=== PATIENT | female | born 1990 | race Caucasian/White ===

== ENCOUNTER 2017-05-27 10:14 | Outpatient (CLI) | payer BC ==
[~2017-05-27] VITALS: Ht 175.3 cm; Wt 123.8 kg
[2017-05-27 10:59] LABS: BASO % 0.1 %; BASO ABS # 0.01 K/uL (0-0.2); EOS % 0.1 %; EOS ABS # 0.02 K/uL (0-0.5); HEMATOCRIT 36.5 % (37-47); HEMOGLOBIN 12.3 g/dL (12.0-16.0); IG# 0.04 K/uL (0.00-0.02); LYMPH % 12.2 %; LYMPH ABS # 1.67 K/uL (1.2-3.4); MEAN CELL VOLUME 85.3 fL (80-100); MEAN CORPUSCULAR HEMOGLOBIN 28.7 pg (25-34); MEAN PLATELET VOLUME 9.8 fL (7.4-10.4); MONO % 4.5 %; MONO ABS # 0.62 K/uL (0.11-0.59); NEUT % 82.8 %; NEUT ABS # 11.29 K/uL (1.4-6.5); PLATELET COUNT 239 K/uL (130-400); RED CELL DISTRIBUTION WIDTH CV 13.1 % (11.5-14.5); RED CELL DISTRIBUTION WIDTH SD 40.3 fL (36.4-46.3); WHITE BLOOD COUNT 13.65 K/uL (4.8-10.8)
[2017-05-27] MEDS ORDERED: PRENTAB26 PO (11:09)
[2017-05-27 11:18] LABS: MEAN CORPUSCULAR HGB CONC 33.7 g/dl (32-36)
[2017-05-27 11:21] LABS: ALT/SGPT 18 U/L (12-78); AST/SGOT 11 U/L (15-37); CREATININE 0.55 mg/dl (0.60-1.20); URIC ACID 4.4 mg/dl (2.6-7.2)
[2017-05-27 11:25] VITALS: Ht 175.3 cm; Wt 123.8 kg
== END 2017-05-27 12:00 | disposition home or self-care (01) ==
LOC: C.LD 10:14 → C.OPB 10:14
PROVIDERS: ATTEND Obstetrics & Gynecology
DX: O99.89 Other specified diseases and conditions complicating pregnancy, childbirth and the puerperium (principal); R03.0 Elevated blood-pressure reading, without diagnosis of hypertension; Z3A.00 Weeks of gestation of pregnancy not specified

== ENCOUNTER → 2017-05-27 | Outpatient (CLI) | payer BC ==
[~2017-05-27] MED LIST: PRENTAB26 PO
== END | disposition home or self-care (01) ==
LOC: C.LABSPEC 10:57
PROVIDERS: ATTEND Obstetrics & Gynecology
DX: Z34.03 Encounter for supervision of normal first pregnancy, third trimester (principal)

== ENCOUNTER 2017-06-01 14:50 | Inpatient (IN) | payer BC ==
[~2017-06-01] VITALS: Ht 175.3 cm; Wt 123.8 kg
[2017-06-01] MEDS ORDERED: LACTATED RINGER'S 1000ML 1,000 ML IV PRN (15:21)
[2017-06-01 15:57] VITALS: Ht 175.3 cm; Wt 123.8 kg
[2017-06-01 16:01] LABS: HEMATOCRIT 36.4 % (37-47); HEMOGLOBIN 12.4 g/dL (12.0-16.0); MEAN CELL VOLUME 85.6 fL (80-100); MEAN CORPUSCULAR HEMOGLOBIN 29.2 pg (25-34); MEAN CORPUSCULAR HGB CONC 34.1 g/dl (32-36); MEAN PLATELET VOLUME 10.1 fL (7.4-10.4); PLATELET COUNT 281 K/uL (130-400); RED CELL DISTRIBUTION WIDTH CV 13.5 % (11.5-14.5); RED CELL DISTRIBUTION WIDTH SD 41.8 fL (36.4-46.3); WHITE BLOOD COUNT 15.79 K/uL (4.8-10.8)
--- NOTE | 2017-06-01 16:44 | Medical Student: [facility] ---
Med Student History & Physical Date of Service Jun 01, 2017. Chief Complaint Extended monitoring for recent history of elevated blood pressure History of Present Illness Source: patient, spouse, clinic records Terri Johnson is a 26 yo white female who is at 37 weeks and 0/7 days, with ENZO of 06/22/2016as dated by her LMP (09/15/2016), who presents today for prolonged monitoring of elevated blood pressures in clinic today and for the last week. She states she recently transitioned care to [facility] when moving to the area 2 weeks ago. At her 36 week OB visit her BP was 160/90. Today she was seen in the clinic with BP of 156/98 and symptoms of headache (relief with tylenol) and nausea with two episodes of vomiting. She states she felt like she was car-sick after taking back roads to the clinic. She denies current symptoms of nausea, vomiting, history of elevated blood pressure prior to a week ago (ran 120/80 at prior OB visits), swelling in hands/feet, blurry/double vision, RUQ abdominal pain, and puffy face. She notes movement, and her blood type is A+, antibody negative. She denies any significant contractions, leakage of fluid, vaginal bleeding, AMA, PET, and anomalies. She reports influenza vaccine (02/09/2017), TDAP vaccine (03/29/2017), and rubella immune. She is GBS negative and had negative STI screening (VDRL/RPR immune, nonreactive treponemal, negative for HBsAg/HIV/chlamydia/gonorrhea). She declined genetic screening. Her 24-28 week labs (03/24) showed 33.2% HCT, 11.4 g/dl HGB, MCV of 86, platelets if 277k, and glucose of 98. Her 32-38 week labs (05/27) showed HCT of 36.5%, 12.3g/dl HGB. OB History She denies prior pregnancies. 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 She notes she was on OCPs for history of severe cramping. Age of 1st sexual intercourse was at age 18. She has had 1 male lifetime partner. 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 She notes history of fibroadenoma of right breast with FNA. She denies history of abnormal pap smear , pain with intercourse, feeling unsafe at home, history of STIs, family history of gynecological cancers, or personal history of gynecological surgery. 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) Allergies Coded Allergies: No Known Allergies (Unverified , 06/01/17) Home Medications Multivit/Min/Iron/Fol Ac/Pren ( Vitamin), 1 TAB PO DAILY Review of Systems Constitutional: No fever, No chills Eyes: No worsening of vision, No diplopia ENT: No sore throat Respiratory: No cough, No shortness of breath Cardiovascular: No chest pain, No edema, No palpitations Abdomen: No pain, No nausea, No vomiting, No diarrhea Musculoskeletal: No swelling, No calf pain Genitourinary - Female: No dysuria, No hematuria, No rash Neurologic: No memory loss, No numbness/tingling Psychiatric: No depression symptoms, No anxiety Hematologic / Lymphatic: No swollen lymph nodes Integumentary: No rash Physical Exam General Appearance: WD/WN, no apparent distress Head: normocephalic, atraumatic Eyes: normal inspection, sclerae normal ENT: normal ENT inspection Neck: supple Respiratory/Chest: lungs clear, normal breath sounds Cardiovascular: regular rate, rhythm, no edema, no murmur Abdomen / GI: + pertinent finding (gravid, fundal height: term, vertex, no palpable contractions, +FHTs, EFW 8lbs) Genitourinary - Female: + pertinent finding (dilation: 1cm, 25% effacement, -2 station) Back: normal inspection Extremities: normal inspection, no calf tenderness, no pedal edema Neurologic/Psych: alert, normal mood/affect, normal reflexes (1/4 bilaterally) Skin: no rash Lymphatic: no adenopathy Monitoring External Monitor: Category 1: baseline HR in 130s, reactive, moderately variable with accelerations. No late/early/variable decelerations. Tocodynamometer: Mild irregular contractions every 8-11 minutes Laboratory Results 06/01/17 15:35 Test 1/16/18 15:35 Red Blood Count 4.25 M/uL (4.2-5.4) Mean Corpuscular Volume 85.6 fL (80-100) Mean Corpuscular Hemoglobin 29.2 pg (25-34) Mean Corpuscular Hemoglobin Concent 34.1 g/dl (32-36) RDW Standard Deviation 41.8 fL (36.4-46.3) RDW Coefficient of Variation 13.5 % (11.5-14.5) Mean Platelet Volume 10.1 fL (7.4-10.4) Diagnostic Results Vitals: BP: 134/73 P: 95 Assessment and Plan Terri Johnson is a 26 yo white female at 37 weeks and 0/7 days, who presents with elevated blood pressure. Her headache has resolved with Tylenol and her nausea/vomiting has resolved, and from her history likely a result of car sickness. She denies symptoms of pre-eclampsia (including but not limited to: blurry vision, swelling, puffy face, RUQ pain). She was a previously scheduled induction for tomorrow, but she will be kept overnight for BP monitoring and plans of induction with vaginal delivery. Plan: 1) Monitor for signs/symptoms of pre-eclampsia - Check BP every 15 minutes - Monitor reflexes (1/4 at baseline) - Labs: liver enzymes, CBC (for platelets and hemoglobin), Creatinine 2) Admit for anticipated induction followed by vaginal - Place heard bulb through cervix to help ripen cervix - Monitor FHTs and contractions - May need to add pitocin to help with contractions or artificial rupture of membranes to aid in laboring process.
[2017-06-02] MEDS ORDERED: LACTATED RINGER'S 1000ML 500 ML IV PRN ×2 (02:33→13:31)
[2017-06-02] MEDS ORDERED: OXYTOCIN 30 UNITS/500ML NSS IV PRN ×2 (02:45→20:30)
[2017-06-02] MEDS ORDERED: BUTORPHANOL TARTRATE 1 MG/ML VIAL IV ONE (02:45)
[2017-06-02] MEDS: LACTATED RINGER'S 1000ML 1,000 ML IV SCH ×3 (02:48→13:56)
[2017-06-02] MEDS ORDERED: ACETAMINOPHEN 500 MG TAB PO STA (08:07)
[2017-06-02] MEDS ORDERED: ACETAMINOPHEN 500 MG TAB PO PRN (08:15)
[2017-06-02] MEDS ORDERED: BUPIVACAINE 0.25% 30 ML VIAL ONE (13:19)
[2017-06-02] MEDS ORDERED: FENTANYL CITRATE INJ 50 MCG/1 ML 2 ML VIAL ONE (13:20)
[2017-06-02] MEDS ORDERED: EpHEDrine SULFATE INJ 50 MG/ML AMP ONE (13:20)
[2017-06-02] MEDS ORDERED: FENTANYL 2MCG/ML ROPIV 1.25MG/ML 100ML BAG EPI ONE (13:21)
[2017-06-02] MEDS ORDERED: NALOXONE HCL INJ 1 MG in SODIUM CHLORIDE 0.9% 1000ML 1,000 ML IV PRN (13:31)
--- NOTE | 2017-06-02 13:41 | Medical Student: [facility] ---
Med Student Progress Note Date of Service Jun 02, 2017. Subjective Pt evaluation today including: conversation w/ patient, physical exam Terri is complaining of significant with each contraction and requests an epidural. Objective Physical Exam Comments: Cervix: 4cm dilation, 75% effaced, -2 station FHTs: category 1: baseline HR in 140s with moderate variability and accelerations. No early/late/variable decelerations. Kiana: contractions every 1.5-3 minutes, but only picked up on monitor when mother is on side Laboratory Results Last 24 Hours Test 06/01/17 15:35 White Blood Count 15.79 K/uL Red Blood Count 4.25 M/uL Hemoglobin 12.4 g/dL Hematocrit 36.4 % Mean Corpuscular Volume 85.6 fL Mean Corpuscular Hemoglobin 29.2 pg Mean Corpuscular Hemoglobin Concent 34.1 g/dl RDW Standard Deviation 41.8 fL RDW Coefficient of Variation 13.5 % Platelet Count 281 K/uL Mean Platelet Volume 10.1 fL Assessment and Plan Assessment and Plan: Terri Johnson is a 26 yo white female at 37 weeks and 0/7 days, who presents with elevated blood pressure. Her blood pressure and other vitals have been stable and WNL. She is experiencing significant pain with each contraction and will have an epidural placed via anesthesia. Anticipate vaginal delivery.
[2017-06-02] MEDS ORDERED: ONDANSETRON INJ 2 MG/ML 2 ML VIAL IV PRN (13:45)
[2017-06-02] MEDS ORDERED: NALBUPHINE HCL INJ 10 MG/ML AMP IV PRN (13:45)
[2017-06-02] MEDS ORDERED: EpHEDrine SULFATE INJ 50 MG/ML AMP IV PRN (13:45)
[2017-06-02] MEDS ORDERED: NALOXONE HCL INJ 0.4 MG/1 ML VIAL/CARP IV PRN (13:45)
[2017-06-02] MEDS ORDERED: DiphenhydrAMINE HCL 50 MG/ML VIAL IV PRN (13:45)
[2017-06-02] MEDS: FENTANYL 2MCG/ML ROPIV 1.25MG/ML 100ML BAG EPI PRN ×2 (15:07→17:17)
[2017-06-02] MEDS ORDERED: NURSING VERBAL MED ORDER ONE (17:15)
[2017-06-02] MEDS ORDERED: DIPHTHERIA/TETANUS/PERTUSSIS 0.5 ML SYR/VIAL IM. ONE (20:30)
[2017-06-02] MEDS ORDERED: HYDROCORTISONE ACETATE 25 MG SUPP PR PRN (20:30)
[2017-06-02] MEDS ORDERED: LANOLIN OINT EXT PRN (20:30)
[2017-06-02] MEDS ORDERED: IBUPROFEN 600 MG TAB PO PRN (20:30)
[2017-06-02] MEDS ORDERED: ACETAMINOPHEN 325 MG TAB PO PRN (20:30)
[2017-06-02] MEDS ORDERED: OXYCODONE/ACETAMINOPHEN 5-325 TAB PO PRN (20:30)
[2017-06-02] MEDS ORDERED: SUPERCREAM 0.870 % 15GM JAR EXT PRN (20:30)
[2017-06-02] MEDS ORDERED: BENZOCAINE 20% AER SPR 82.5 GM CAN EXT PRN (20:30)
[2017-06-02] MEDS ORDERED: LACTATED RINGER'S 1000ML 1,000 ML IV SCH (21:30)
--- NOTE | 2017-06-02 21:57 | Anesthesia Procedure Note ---
Anesthesia Epidural Removal Nt Date & Time Jun 02, 2017 at 21:57 Vital Signs Pain Intensity: 0.0 Notes Mental Status: alert / awake / arousable, participated in evaluation Nausea / Vomiting: adequately controlled Pain: adequately controlled Airway Patency, RR, SpO2: stable & adequate BP & HR: stable & adequate Hydration State: stable & adequate Neuraxial Anesthesia: was administered Anesthetic Complications: no major complications apparent, pt satisfied with anesthetic care Epidural: removed without complications, with tip intact
[2017-06-03 00:20] VITALS: BP 124/85; PULSE 70; TEMP 37.2
[2017-06-03 04:00] VITALS: BP 138/89; PULSE 90; TEMP 36.6
--- NOTE | 2017-06-03 07:40 | OB/GYN Progress Note ---
[employer] Progress Note Date of Service Jun 03, 2017. Subjective conversation w/ patient, physical exam, chart review, lab review Ambulation: ambulating normally Voiding: no voiding problems Passing Gas: Yes Diet Tolerance: Regular Diet Lochia: Small Feeding Type: Breast Feeding Review of Systems Constitutional: No fever Respiratory: No cough, No shortness of breath Cardiac: No chest pain Abdomen: No pain, No nausea, No vomiting Female : No dysuria no GUIDO, no RUQ pain, no visual changes Objective Vital Signs Date Time Temp Pulse Resp B/P (MAP) Pulse Ox O2 Delivery O2 Flow Rate FiO2 06/03/17 04:00 36.6 90 18 138/89 (105) Room Air 06/03/17 00:20 Room Air 06/03/17 00:20 37.2 70 18 124/85 (98) Room Air Physical Exam General Appearance: WELL-APPEARING, WD/WN, NO APPARENT DISTRESS Respiratory/Chest: lungs clear, normal breath sounds Cardiovascular: regular rate, rhythm, no murmur Abdomen: non tender, soft Fundus: Firm Extremities: no pedal edema, no calf tenderness Laboratory Results Last 24 Hours Test 06/03/17 04:44 Assessment and Plan Post- Day Number: 1 Continue Routine Care: 26 f PPD 1, planned induction due to gestation HTN at 37 wks. Patient care was transferred recently to [facility]. Patient was found in the office to have pressure 160/90 +2 protein. Following delivery her pressures have normalized; 138/89 this am. Plan; 1. Continue pp care; ambulate, monitor lochia, support BF, control pain 2. Plan is to DC tonight, follow serial BP until DC. Instructions discussed with the patient. Resident Physician Supervision Note: I was present with Dr. Rosario during the history and exam. I discussed the case with the resident and agree with the findings and plan as documented in the note. Any exceptions or clarifications are listed here: [None] Documented By: Sarah Tyler
--- NOTE | 2017-06-03 07:42 | Discharge Instructions ---
Discharge Instructions Date of Service Jun 03, 2017. Admission Reason for Admission: Induction Discharge Discharge Diagnosis / Problem: vaginal delivery Discharge Goals Goal(s): Routine recovery after delivery Medications Continue Dispensed Medications: supercream, dermaplast, tucks, lansinoh Activity Recommendations Activity Limitations: per Instructions/Follow-up section . Instructions / Follow-Up Instructions / Follow-Up ACTIVITY RECOMMENDATIONS: * Gradual return to full activity over the next 2-3 weeks. * No lifting - nothing heavier than baby over the next 2-3 weeks. * Do not engage in vigorous exercise, sexual activity or sports until cleared by your physician. * Do not drive or operate any motorized equipment until cleared by your physician. * You may shower/bathe daily. MEDICATIONS: For discomfort or pain, you may use Acetaminophen (Tylenol), Ibuprofen (Advil), or Naproxen (Aleve) following the package directions. For constipation you may use Colace following the package directions. BREAST CARE: If you are not breast feeding: * Wear a supportive bra 24 hours a day for one to two weeks. * Avoid stimulating your breasts and nipples as much as possible during the first few weeks after delivery. * When taking a shower, have the warm water hit your back, not breasts. * When your breasts feel full, apply ice packs. Usually three to four times a day helps ease the discomfort. * Take a mild pain medication (Tylenol / Motrin) when you are uncomfortable. If breast feeding: * Use breast milk to lubricate nipples. Lansinoh cream may be used for sore nipples. You do not need to remove cream prior to breast feeding. If using a different brand of cream, check the label for directions regarding removal of cream prior to nursing. * Wear a supportive bra. * If having problems with breasts or breast feeding, call a corporate health consultant or your health care provider. EPISIOTOMY CARE: After delivery, if you have an episiotomy (stitches), the following steps will ease discomfort and aid healing. * For the first 24 hours after delivery, place ice packs next to your episiotomy to help reduce swelling. * After the first 24 hour-period, sitz baths, either portable or in the tub, are suggested. A shower with a shower arm sprayed over the episiotomy may be comforting. * Daniela care should be done after each voiding and bowel movement. Squirt warm water from a plastic bottle over the perineum (region of the body between the anus and urinary opening) and pat dry. * Use Dermoplast to ease discomfort. Shake container. [place] directly over the episiotomy. Place a Tucks on a clean sanitary pad next to your episiotomy. SPECIAL CARE INSTRUCTIONS: When you are discharged from the hospital, it is important for you to follow the instructions listed below: * During the first week at home, you should be able to care for yourself and your baby. In addition, the usual light household activities are encouraged. * Limit your activities to the way you feel. Do not try to clean the house or move furniture. Be sensible. * If you actively engage in sports and have done so up until the time of your delivery, you may resume these activities as soon as you feel able. This may take up to one month or even longer. Use good judgment. * Continue to take your vitamins for at least six weeks after the of your baby. * Your diet need not be limited unless you were on a special diet before your delivery. Breast-feeding mothers need around 2500 calories per day and at least 64-80 ounces of fluid per day (8 to 10 glasses). * You should eat foods from the four major food groups. Crash diets or fad diets are to be avoided. Eating lean meats, fresh fruits and vegetables, low-fat dairy products, high fiber foods and a regular exercise program, will help you get back to your pre- weight without putting your health at risk. * Constipation is sometimes a problem after delivery. Take a mild laxative as needed. If breast feeding, Milk of Magnesia is acceptable to use. You may use a suppository or Fleets enema if no episiotomy. * A daily shower or tub bath is suggested. Be sure to thoroughly and gently dry the perineum. * A bloody vaginal discharge will usually continue until around four weeks post . A small amount of bleeding may continue for as long as six weeks. Vaginal discharge changes from the bright red bleeding after delivery to pink then brownish and finally yellowish-pink before becoming white and disappearing. * Bleeding may increase with activity. Your first period may come in 4-8 weeks. If you are breast feeding, your period may be delayed even longer. * Acton (sex) can begin whenever both you and your partner feel comfortable and do not have any form of genital infection. It is recommended that you wait at least six weeks for internal and external healing to occur. If you have questions, please talk to your health care practitioner. A condom should be used to prevent infection and . * Foreplay, gentle intercourse and lubrication is very important the first several times to prevent pain. A water-based lubricant such as K-Y jelly or Astroglide may be used. * If you have RH negative blood and your baby is RH positive, you will receive RHOGAM by injection prior to discharge. The nurse will give you a card to keep with you that has the date and place that you received RHOGAM after delivery. * During your care, you had a Rubella screen done to check for the presence of rubella antibodies in your blood. If your test was negative, you will receive a Rubella vaccine prior to discharge. This vaccine may cause a fever, soreness at the injection site and flu-like symptoms. If these symptoms persist, notify your health care practitioner. is not advised for one month after a Rubella vaccine. * Verbalizes understanding of car seat law as reviewed with patient nursing. * Car Seat hand-out given and reviewed with patient by nursing. * Shaken baby information reviewed with patient by nursing. Call you doctor if: * Heavy bleeding (saturating several pads an hour) or passing clots the size of your fist. * A fever >101 degrees F (38.3 degrees C) on two occasions four hours apart and /or chills. * Unusual pain in the pelvic or vaginal areas. * "Baby Blues" lasting longer than two weeks. If you have any questions or concerns, call your health care practitioner at . FOLLOW UP VISIT: * Please call the office at to schedule a 6 week examination. It is important you keep this appointment. It is important for you to make arrangements for either yearly or twice yearly check-ups thereafter. Current Hospital Diet Patient's current hospital diet: Regular Diet Discharge Diet Recommended Diet: Regular OB Diet Pending Studies Studies pending at discharge: no Medical Emergencies . Who to Call and When: Medical Emergencies: If at any time you feel your situation is an emergency, please call [phone] immediately. . Non-Emergent Contact Non-Emergency issues call your: Dural Mechanic . . "Provider Documentation" section prepared by Maurisio Rosario. . VTE Core Measure Inpt VTE Proph given/why not?: Treatment not indicated
[2017-06-03 07:45] VITALS: BP 133/88; PULSE 82; TEMP 37; O2SAT 96
--- NOTE | 2017-06-03 07:55 | DELIVERY SUMMARY ---
DATE OF OPERATION: 06/02/2017 PREOPERATIVE DIAGNOSES: 1. Steinberg intrauterine at 37 and 1. 2. Mild preeclampsia. 3. Induction of labor. POSTOPERATIVE DIAGNOSES: Same. PROCEDURE: Spontaneous vaginal delivery. SURGEON: Sarah Tyler MD. ASSIST: None. ESTIMATED BLOOD LOSS: 300. COMPLICATIONS: None. DISPOSITION: Stable to labor and delivery. DESCRIPTION OF THE PROCEDURE: Terri is a 26-year-old G1, P0, presented for induction of labor at term due to mild preeclampsia. She was given a Ku bulb by my partner Dr. Cox on the evening of . She began Pitocin on the morning of . She received an epidural for pain management, artificial rupture of membranes, and ultimately did reach complete dilation with an urge to push. She pushed through the second stage of labor and went to pass the head down to . I was called for delivery. I prepped in down for delivery. The patient over the next several pushing attempts was able to deliver the head in an occiput anterior position. Nuchal cord x1 was reduced at the perineum. Then, the shoulders and reminder of the infant delivered without any difficulty. The vigorous was placed on the maternal abdomen where the cord was doubly clamped and cut by the father of the baby. The was noted to be fairly small but vigorous and moving all extremities well, making crying sounds as well as demonstrating good tones. The placenta delivered spontaneously and was noted also to be fairly petite but normal with a 3-vessel cord. There was minimal bleeding, and the cervix, vagina and perineum were without lacerations requiring repair. At the current time, mother and baby are both in stable condition having tolerated the delivery well. I attest to the content of the Intraoperative Record and any orders documented therein. Any exception s are noted below.
[2017-06-03] MEDS: PRENATAL VITAMIN TAB PO SCH (08:15)
[2017-06-03] MEDS: DOCUSATE SODIUM 100 MG CAP PO SCH ×2 (08:15→19:54)
[2017-06-03 09:17] LABS: HEMATOCRIT 31.5 % (37-47); HEMOGLOBIN 10.8 g/dL (12.0-16.0)
[2017-06-03 11:20] VITALS: BP 137/95; PULSE 84; TEMP 36.3; O2SAT 97
[2017-06-03 15:30] VITALS: BP 128/83; PULSE 64; TEMP 36.3; O2SAT 95
[2017-06-03 23:00] VITALS: BP 136/86; PULSE 71; TEMP 36.8
--- NOTE | 2017-06-04 06:46 | OB/GYN Progress Note ---
COUNCILPERSON Progress Note Date of Service Jun 04, 2017. Subjective conversation w/ patient, physical exam, chart review, lab review Ambulation: ambulating normally Voiding: no voiding problems Passing Gas: Yes Diet Tolerance: Regular Diet Lochia: Moderate Feeding Type: Breast Feeding Review of Systems Constitutional: No fever, No chills Respiratory: No cough, No shortness of breath Cardiac: No chest pain Abdomen: No pain, No nausea, No vomiting Female : No dysuria Objective Vital Signs Date Time Temp Pulse Resp B/P (MAP) Pulse Ox O2 Delivery O2 Flow Rate FiO2 06/03/17 23:00 36.8 71 18 136/86 (103) Room Air 06/03/17 23:00 Room Air 06/03/17 15:30 Room Air 06/03/17 15:30 36.3 64 20 128/83 (98) 95 Room Air 06/03/17 11:20 36.3 84 18 137/95 (109) 97 Room Air 06/03/17 07:45 37.0 82 18 133/88 (103) 96 Room Air 06/03/17 07:35 Room Air Physical Exam General Appearance: WELL-APPEARING, WD/WN, NO APPARENT DISTRESS Respiratory/Chest: lungs clear, normal breath sounds Cardiovascular: regular rate, rhythm Abdomen: non tender, soft Fundus: Firm Extremities: no pedal edema, no calf tenderness Laboratory Results Last 24 Hours Test 06/03/17 08:48 Hemoglobin 10.8 g/dL Hematocrit 31.5 % Assessment and Plan Post- Day Number: 2 Continue Routine Care: Resident Physician Supervision Note: I was present with Dr. Marely Rosario during the history and exam. I discussed the case with the resident and agree with the findings and plan as documented in the note. Any exceptions or clarifications are listed here: [None] Documented By: Nidia Mondragon Yeni 26 f PPD 2, planned induction due to gestation HTN at 37 wks. Patient care was transferred recently to [place] [facility]. Patient was found in the office to have pressure 160/90 +2 protein. Following delivery her pressures have normalized; 130's/80's average yesterday. Hg 12.4 on admission, 10.8 yesterday. Plan; 1. Continue pp care; ambulate, monitor lochia, support BF, control pain 2. Plan is to DC today, follow serial BP until DC. Instructions discussed with the patient.
[2017-06-04 07:30] VITALS: BP 154/93; PULSE 72; TEMP 36.4
[2017-06-04] MEDS: PRENATAL VITAMIN TAB PO SCH (08:28)
[2017-06-04] MEDS: DOCUSATE SODIUM 100 MG CAP PO SCH (08:28)
[2017-06-04 14:38] VITALS: BP_DIAS 93; PULSE 72; TEMP 36.4
== END 2017-06-04 16:47 | disposition home or self-care (01) | DRG 774 ==
LOC: C.LD 14:50 → C.OBG 06-02 23:40
PROVIDERS: ADMIT Obstetrics & Gynecology; ATTEND Obstetrics & Gynecology
PROC: 10903ZC Drainage of Amniotic Fluid, Therapeutic from Products of Conception, Percutaneous Approach (ICD-10-PCS; principal; 2017-06-02)
PROC: 10E0XZZ Delivery of Products of Conception, External Approach (ICD-10-PCS; principal; 2017-06-02)
PROC: 3E033VJ Introduction of Other Hormone into Peripheral Vein, Percutaneous Approach (ICD-10-PCS; principal; 2017-06-02)
DX: O14.03 Mild to moderate pre-eclampsia, third trimester (principal); O69.81X1 Labor and delivery complicated by cord around neck, without compression, fetus 1; Z37.0 Single live birth; Z3A.37 37 weeks gestation of pregnancy

== ENCOUNTER 2020-02-27 07:28 | Inpatient (IN) ==
[2020-02-27] MEDS ORDERED: OXYTOCIN 30 UNITS/500 ML BAG IV PRN ×3 (07:51→17:42)
[2020-02-27 08:23] LABS: Hematocrit (blood only) 33.3 % (37-47); Hemoglobin 11.1 g/dL (12.0-16.0); Mean Corpuscular Hemoglobin 29.8 pg (25-34); Mean Corpuscular Volume 89.5 fL (80-100); Mean Platelet Volume 9.2 fL (7.4-10.4); Platelet Count 185 K/uL (130-400); RDW Coefficient of Variation 12.6 % (11.5-14.5); RDW Standard Deviation 40.9 fL (36.4-46.3); Red Blood Count 3.72 M/uL (4.2-5.4); White Blood Count 9.52 K/uL (4.8-10.8)
[2020-02-27 08:25] LABS: Mean Corpuscular Hgb Conc 33.3 g/dL (32-36)
[2020-02-27] MEDS: LACTATED RINGER'S 1,000 ML IV PRN ×3 (08:37→14:01)
--- NOTE | 2020-02-27 08:45 | Labor Progress Brief Note ---
Date of Service February 27, 2020 Subjective Patient here for IOL due to cHTN. Kings fell out, patient ready for next steps. Feeling OK at this time without painful ctx, lOF or VB, has good FM, no s/sx PIH. Assessment & Plan (1) Chronic hypertension during : Induction as indicated. To begin pitocin, will AROM after several hours / pt may wish epidural before then. (2) 38 weeks gestation of : Admission and Anticipated Discharge Date Admission Date: February 27, 2020 Physical Exam Physical Exam: /-2/soft/ant Intact membranes EFW 6-7 FHT Cat 1 [place] quiet Results & Data ([facility]) Vital Signs (Past 12 Hours) Vital Signs Temp Pulse Resp BP 02/27/20 07:50 98.1 F 20 02/27/20 07:41 101 H 134/93 Coding Level of Care Code None Diagnoses Chronic hypertension during O10.919 38 weeks gestation of Z3A.38
[2020-02-27 08:55] LABS: Alanine Aminotransferase 22 U/L (12-78); Albumin Level 2.4 gm/dl (3.4-5.0); Aspartate Aminotransferase 15 U/L (15-37); Bilirubin Direct < 0.1 mg/dl (0-0.2); Blood Urea Nitrogen 7 mg/dl (7-18); Calcium 8.8 mg/dl (8.5-10.1); Carbon Dioxide 24 mmol/L (21-32); Chloride 106 mmol/L (98-107); Creatinine Clr Calc Pharmacy 150.8 ml/min; Est GFR (African American) 134.3; Est GFR (Non-African American) 115.9; Glucose 98 mg/dl (70-99); Sodium 137 mmol/L (136-145)
[2020-02-27 09:01] LABS: Albumin Globulin Ratio 0.7 (0.9-2); Alkaline Phosphatase 136 U/L (45-117); Bilirubin,Total 0.4 mg/dl (0.2-1); Globulin 3.6 gm/dl (2.5-4.0)
[2020-02-27] MEDS ORDERED: fentaNYL citrate 100 MCG/2 ML VIAL ONE (12:06)
[2020-02-27] MEDS ORDERED: BUPIVACAINE 0.25% 30 ML VIAL ONE (12:06)
[2020-02-27] MEDS ORDERED: ePHEDrine sulfate 50 MG/ML AMP ONE (12:06)
[2020-02-27] MEDS ORDERED: fentaNYL 2MCG/ML ROPIVACAINE 1.25MG/ML 100 ML BAG EPI ONE (12:07)
--- NOTE | 2020-02-27 13:41 | Anesthesiology Consultation ---
Date of Service February 27, 2020 Assessment & Plan Chart Review Chart Review: Acceptable Risk for Surgery Consults Requested none History Height/Weight Height: 5 ft 8 in Weight: 106.594 kg Allergies Allergy/AdvReac Type Severity Reaction Status Date / Time No Known Allergies Allergy Verified 02/26/20 19:50 Medications Home Medications Medication Instructions Recorded Confirmed Last Taken labetalol 100 mg tablet 100 mg PO DAILY tab 07/26/19 02/27/20 02/27/20 aspirin 81 mg tablet,delayed 81 mg PO DAILY 09/26/19 02/27/20 02/27/20 release breast pump #1 ea 02/13/20 02/26/20 Unknown humidifiers #1 ea 02/13/20 02/26/20 Unknown prenat.vits,brittney,dry-gmsx-fnigw 1 tab PO DAILY 02/26/20 02/27/20 02/26/20 08:00 [ Vitamin] Active Medications Generic Name Dose Route Start Last Admin Trade Name Freq PRN Reason Stop Dose Admin Lactated Ringer's 1,000 mls @ 125 mls/hr 02/27/20 07:51 02/27/20 13:12 Lr IV 02/29/20 07:50 125 mls/hr .Q8H PRN Infusion L&D Protocol Protocol Oxytocin 30 units in 500 mls @ 7 mls/hr 02/27/20 07:51 02/27/20 13:00 Pitocin IV 02/29/20 07:50 0.42 units/hr .Q24H PRN 7 mls/hr Labor Induction/Augmentation Titration Protocol 0.42 UNITS/HR Past Medical History Medical History Encounter for anatomic survey Encounter for preconception consultation Gestational hypertension w/o significant proteinuria in 3rd trimester History of breast lump with 37 weeks completed gestation Supervision of normal intrauterine in multigravida Varicella vaccine Past Family History Family History Mother Hypertension Dyslipidemia Father Hypertension Dyslipidemia Past Surgical History Surgical History S/P cholecystectomy S/P fine needle aspiration Social History Smoking Status: Never smoker Hx Alcohol Use: No Hx Substance Use: No substance use type: does not use Physical Exam Vital Signs Last Vital Signs Temp 36.9 C 02/27/20 13:00 Pulse 76 02/27/20 13:39 Resp 20 02/27/20 13:00 BP 112/69 02/27/20 13:39 Pulse Ox 98 02/27/20 13:35 Testing Laboratory Results 02/27/20 08:11 02/27/20 08:11
[2020-02-27] MEDS ORDERED: ePHEDrine sulfate 50 MG/ML AMP IV PRN (13:42)
[2020-02-27] MEDS ORDERED: NALOXONE HCL 0.4 MG/1 ML VIAL/CARP IV PRN (13:42)
[2020-02-27] MEDS ORDERED: fentaNYL 2MCG/ML ROPIVACAINE 1.25MG/ML 100 ML BAG EPI PRN (13:42)
[2020-02-27] MEDS ORDERED: NALOXONE HCL 1 MG in SODIUM CHLORIDE 0.9% 1000ML 1,000 ML IV PRN (13:42)
[2020-02-27] MEDS ORDERED: diphenhydrAMINE 50 MG/ML VIAL IV PRN (13:42)
--- NOTE | 2020-02-27 15:11 | Labor Progress Brief Note ---
Date of Service February 27, 2020 Subjective Comfortable with epidural. Assessment & Plan (1) Chronic hypertension during : cont curr mgmt Admission and Anticipated Discharge Date Admission Date: February 27, 2020 Physical Exam Physical Exam: FHT Cat 1 Pit @ 7 [place] Q2 5/75/-1 LOF clear Results & Data ([facility]) Vital Signs (Past 12 Hours) Vital Signs Temp Pulse Resp BP Pulse Ox 02/27/20 15:09 54 L 124/63 02/27/20 15:05 52 L 100 02/27/20 15:02 51 L 118/62 02/27/20 15:00 98.2 F 49 L 18 100 02/27/20 14:58 55 L 121/59 L 02/27/20 14:55 51 L 100 02/27/20 14:52 52 L 119/64 02/27/20 14:50 51 L 100 02/27/20 14:48 55 L 122/61 02/27/20 14:45 66 100 02/27/20 14:43 67 108/58 L 02/27/20 14:40 52 L 100 02/27/20 14:37 55 L 120/58 L 02/27/20 14:35 51 L 100 02/27/20 14:32 50 L 114/58 L 02/27/20 14:30 57 L 18 100 02/27/20 14:29 53 L 120/57 L 02/27/20 14:25 62 100 02/27/20 14:24 90 108/69 02/27/20 14:21 80 97/63 L 02/27/20 14:20 82 97 02/27/20 14:15 76 97 02/27/20 14:12 82 104/63 02/27/20 14:10 69 96 02/27/20 14:05 62 96 02/27/20 14:01 63 108/64 02/27/20 14:00 79 16 106/68 98 02/27/20 13:55 65 104/64 96 02/27/20 13:50 72 96 02/27/20 13:49 81 106/62 02/27/20 13:45 90 118/61 98 02/27/20 13:42 85 101/67 02/27/20 13:41 106/72 02/27/20 13:40 100 H 98 02/27/20 13:39 76 112/69 02/27/20 13:37 73 121/73 02/27/20 13:35 55 L 119/63 98 02/27/20 13:34 47 L 135/75 02/27/20 13:32 44 L 80/43 L 02/27/20 13:31 51 L 95/51 L 02/27/20 13:30 48 L 16 97/51 L 97 02/27/20 13:29 61 103/55 L 02/27/20 13:27 61 115/56 L 02/27/20 13:25 94 H 135/65 97 02/27/20 13:24 110 H 133/79 02/27/20 13:22 80 128/77 02/27/20 13:20 71 96 02/27/20 13:15 84 96 02/27/20 13:10 79 96 02/27/20 13:06 100 H 125/83 02/27/20 13:05 92 H 98 02/27/20 13:00 98.4 F 85 20 98 02/27/20 12:55 76 96 02/27/20 12:51 63 133/75 02/27/20 12:50 114 H 98 02/27/20 12:30 20 02/27/20 12:10 67 83 L 02/27/20 12:05 69 83 L 02/27/20 12:00 20 02/27/20 11:51 56 L 127/61 02/27/20 11:30 18 02/27/20 11:00 18 02/27/20 10:56 53 L 121/70 02/27/20 10:46 60 126/66 02/27/20 10:30 20 02/27/20 10:00 20 02/27/20 09:30 18 02/27/20 09:27 60 122/67 02/27/20 09:00 20 02/27/20 08:57 62 129/73 02/27/20 08:30 18 02/27/20 08:00 98.1 F 16 02/27/20 07:50 98.1 F 20 02/27/20 07:41 101 H 134/93 Coding Level of Care Code None Diagnoses Chronic hypertension during O10.919
--- NOTE | 2020-02-27 17:29 | Delivery Summary ---
Vaginal Delivery Summary Date of Service February 27, 2020 Vaginal Delivery Summary DIAGNOSES: 1. Steinberg intrauterine at 38w5d gestation. 2. Induction of labor for chronic hypertension. 3. Group B Streptococcus Neg. PROCEDURE: Spontaneous vaginal delivery without laceration. SURGEON: Sarah Tyler MD. DINKEY ENGINE FIRER/FIREMAN: None. ESTIMATED BLOOD LOSS: 300 mL. COMPLICATIONS: None. PLACENTA: Spontaneous and intact with a 3-vessel cord. DISPOSITION: Stable to labor and delivery. DESCRIPTION: The patient pushed well and brought the head to in LOP position. The infant's head was allowed to deliver with contraction force and no further active pushing, with the perineum protected during this time. The shoulders delivered easily with a maternal pushing effort. There was no nuchal cord. The right shoulder was anterior and there was a compound presentation of the right arm as well. The shoulders and body delivered without any difficulty, and the infant was placed on the maternal abdomen. It was vigorous and moving all extremities, and making respiratory efforts. The cord was doubly clamped by the MD and then cut by the FOB. The placenta delivered spontaneously and was noted to be intact and with a 3VC. The cervix, vagina and perineum were examined and were found to be without defect requiring repair. The fundus was firm and lochia minimal immediately after delivery. [facility] Vaginal Delivery Charge Vaginal Delivery Codes: 85498 global code for the antepartum, delivery, and post-
[2020-02-27] MEDS ORDERED: bisacodyL 10 MG SUPP PR PRN (17:42)
[2020-02-27] MEDS ORDERED: BENZOCAINE 20% AER SPR 82.5 GM CAN EXT PRN (17:42)
[2020-02-27] MEDS ORDERED: SUPERCREAM 0.870% 15 GM JAR EXT PRN (17:42)
[2020-02-27] MEDS ORDERED: ACETAMINOPHEN 325 MG TAB PO PRN (17:42)
[2020-02-27] MEDS ORDERED: oxyCODONE/ACETAMINOPHEN 5mg/325mg TAB PO PRN (17:42)
[2020-02-27] MEDS ORDERED: HYDROCORTISONE ACETATE 25 MG SUPP PR PRN (17:42)
[2020-02-27] MEDS ORDERED: DIPHTHERIA/TETANUS/PERTUSSIS 0.5 ML SYR/VIAL IM ONE (17:42)
[2020-02-27] MEDS: DOCUSATE SODIUM 100 MG CAP PO SCH (21:13)
[2020-02-27] MEDS: IBUPROFEN 600 MG TAB PO PRN (21:15)
[2020-02-28] MEDS: IBUPROFEN 600 MG TAB PO PRN (03:15)
--- NOTE | 2020-02-28 05:22 | Obstetrical Progress Note ---
Date of Service <Elvis Sharma MD - Last Filed: 02/28/20 06:19> February 28, 2020 Assessment & Plan <Elvis Sharma MD - Last Filed: 02/28/20 06:19> (1) Spontaneous vaginal delivery: Terri is a 29 y/o female who is now PPD #1 following planned IOL in the setting of cHTN at 38-5/7 weeks. - Feels well today. Eating well, voiding well, ambulating well. - Pain well controlled with ibuprofen 600mg Q4H PRN. - Routine care -- continue to promote OOB and ambulation throughout today - After discharge will have [address] Tyler Subjective <Elvis Sharma MD - Last Filed: 02/28/20 06:19> Terri is a 29 y/o female who is now PPD #1 following planned IOL in the setting of cHTN at 38-5/7 weeks. Reports feeling well overall this morning. Endorses some abdominal cramping with pain well managed on analgesics. Voiding without difficulty. Tolerating meals well and able to ambulate some. Endorses passing gas. Some persistent lochia with some improvement this morning. Breast feeding. Review of Systems Denies fever, chills, sweats Denies shortness of breath, difficulty breathing, chest pain, palpitations, ch est pressure. Denies breast pain. Denies dysuria. Denies headache or changes in vision. Physical Exam <Elvis Sharma MD - Last Filed: 02/28/20 06:19> General: Alert, oriented. No acute distress. Cardiac: Regular rate and rhythm, no murmurs/rubs/gallops. Respiratory: Clear to auscultation bilaterally a/p, no wheezes/rales/rhonchi. No increased work of breathing. Symmetrical chest rise. No respiratory distress. Abdomen: Soft, nontender, nondistended. Bowel sounds present. Uterus: Uterine fundus firm, palpable 2 cm below umbilicus. Lower Extremities: No lower extremity edema or swelling. No deep calf pain. Rolando's negative bilaterally. Results & Data ([facility]) <Elvis Sharma MD - Last Filed: 02/28/20 06:19> Vital Signs (Past 12 Hours) Vital Signs Temp Pulse Pulse Resp BP BP Pulse Ox 10/14/20 03:10 36.8 C 72 16 133/86 97 02/27/20 23:20 36.6 C 72 16 118/71 97 02/27/20 20:10 36.4 C L 87 18 128/83 97 02/27/20 19:15 36.9 C 18 02/27/20 19:05 98 H 131/55 L 02/27/20 18:50 103 H 142/57 H 02/27/20 18:35 85 18 125/70 02/27/20 18:20 78 125/71 02/27/20 18:05 74 18 120/65 02/27/20 17:50 70 16 114/63 02/27/20 17:35 87 16 115/60 02/27/20 17:20 36.5 C 84 18 121/61 95 <Sarah Tyler MD - Last Filed: 02/28/20 07:04> Co-Signing Physician Notes I have reviewed the resident's note and examined the patient myself, and agree with the note above. Resident Activity Tracking <Elvis Sharma MD - Last Filed: 02/28/20 06:19> Resident Involvement: Resident Care Provided Care Provided: Adult Hospital Medicine and OB Delivery
[2020-02-28 06:55] LABS: Hematocrit (blood only) 32.4 % (37-47); Hemoglobin 10.7 g/dL (12.0-16.0); Mean Corpuscular Hemoglobin 29.7 pg (25-34); Mean Platelet Volume 9.2 fL (7.4-10.4); Platelet Count 183 K/uL (130-400); RDW Coefficient of Variation 12.8 % (11.5-14.5); RDW Standard Deviation 41.8 fL (36.4-46.3); White Blood Count 11.34 K/uL (4.8-10.8)
[2020-02-28] MEDS: LABETALOL HCL 100 MG TAB PO SCH (08:28)
[2020-02-28] MEDS: PRENATAL VITAMIN 1 TAB PO SCH (08:29)
[2020-02-28] MEDS ORDERED: NON-FORMULARY MEDICATION (Prenat.Vits,Cal,Min-Iron-Folic 1 TAB) PO SCH (09:00)
[2020-02-28] MEDS ORDERED: bisacodyL 5 MG TABEC PO SCH (20:00)
[2020-02-28] MEDS: DOCUSATE SODIUM 100 MG CAP PO SCH (21:02)
--- NOTE | 2020-02-29 05:52 | Obstetrical Progress Note ---
Date of Service <Elvis Sharma MD - Last Filed: 02/29/20 06:29> February 29, 2020 Assessment & Plan <Elvis Sharma MD - Last Filed: 02/29/20 06:29> (1) Spontaneous vaginal delivery: Terri is a 29 y/o female who is now PPD #2 following planned IOL in the setting of cHTN with subsequent at 38-5/7 weeks. - Feels well today. Eating well, voiding well, ambulating well. - Pain well controlled with ibuprofen 600mg Q4H PRN. - Routine care -- continue to promote OOB and ambulation throughout today - After discharge will have [address] Tyler Dispo: Anticipate d/c today Subjective <Elvis Sharma MD - Last Filed: 02/29/20 06:29> Terri is a 29 y/o female who is now PPD #2 following planned IOL in the setting of cHTN and subsequent at 38-5/7 weeks. Reports feeling well this morning. Endorses some continued abdominal cramping with pain well managed on analgesics. Voiding without difficulty. Tolerating meals well and able to ambulate some. Endorses passing gas. Some persistent lochia with continued improvement. Breast feeding. She states she is ready to go home. Review of Systems Denies fever, chills, sweats Denies shortness of breath, difficulty breathing, chest pain, palpitations, chest pressure. Denies breast pain. Denies dysuria. Denies headache or changes in vision. Physical Exam <Elvis Sharma MD - Last Filed: 02/29/20 06:29> General: Alert, oriented. No acute distress. Cardiac: Regular rate and rhythm, no murmurs/rubs/gallops. Respiratory: Clear to auscultation bilaterally a/p, no wheezes/rales/rhonchi. No increased work of breathing. Symmetrical chest rise. No respiratory distress. Abdomen: Soft, nontender, nondistended. Bowel sounds present. Uterus: Uterine fundus firm, palpable 3 cm below umbilicus. Lower Extremities: No lower extremity edema or swelling. No deep calf pain. Rolando's negative bilaterally. Results & Data ([facility]) <Elvis Sharma MD - Last Filed: 10/15/20 06:29> Vital Signs (Past 12 Hours) Vital Signs Temp Pulse Resp BP 02/29/20 00:25 36.8 C 74 20 112/67 02/28/20 20:10 36.8 C 69 20 126/71 <Bryant Carreon Jr, MD, FACOG - Last Filed: 02/29/20 06:52> Co-Signing Physician Notes Resident Physician Supervision Note: I was present with Dr. Sharma during the history and exam. I discussed the case with the resident and agree with the findings and plan as documented in the note. Any exceptions or clarifications are listed here: Patient's BP stable on meds, reviewed D/C instructions again, will d/c home. Documented By: Bryant Carreon Jr, MD, FACOG Resident Activity Tracking <Elvis Sharma MD - Last Filed: 02/29/20 06:29> Resident Involvement: Resident Care Provided Care Provided: Adult Hospital Medicine and OB Delivery
[2020-02-29 06:17] LABS: Hematocrit (blood only) 32.2 % (37-47); Hemoglobin 10.6 g/dL (12.0-16.0)
[2020-02-29] MEDS: LABETALOL HCL 100 MG TAB PO SCH (08:14)
[2020-02-29] MEDS: DOCUSATE SODIUM 100 MG CAP PO SCH (08:14)
[2020-02-29] MEDS: PRENATAL VITAMIN 1 TAB PO SCH (08:14)
== END 2020-02-29 10:15 | disposition home or self-care (01) | DRG 807 ==
LOC: 4S1 07:28 → 4S2 19:44